=== PATIENT | female | born 1975 | race Caucasian/White ===

== ENCOUNTER → 2017-12-07 | Outpatient (CLI) | payer OTHER, MEDICAID | LOC: BMCIMAGING 13:39 | PROVIDERS: ATTEND Physician Assistant | DX: K59.00 Constipation, unspecified (principal); R19.00 Intra-abdominal and pelvic swelling, mass and lump, unspecified site ==

== ENCOUNTER → 2017-12-16 | Outpatient (CLI) | payer OTHER, MEDICAID ==
[~2017-12-16] MED LIST: IOPAMIDOL (ISOVUE-300) 100 ML BTL ONE
== END ==
LOC: FIMAGING 09:49
PROVIDERS: ATTEND Physician Assistant
DX: K82.9 Disease of gallbladder, unspecified (principal); J98.09 Other diseases of bronchus, not elsewhere classified
CPT/HCPCS: 74160; Q9967

== ENCOUNTER 2018-03-18 09:54 | Emergency (ER) | payer OTHER, MEDICAID ==
[2018-03-18 10:01] VITALS: BP 91/65
[2018-03-18] MEDS ORDERED: diphenhydrAMINE 25 MG CAP PO ONE (10:44)
[2018-03-18] MEDS ORDERED: diphenhydrAMINE 50 MG CAP PO ONE (10:44)
--- NOTE | 2018-03-18 10:46 | EDPHY ---
H & P Stated Complaint: generalized rash starting yesterday, abi one week ago Time Seen by Provider: 03/18/18 10:14 HPI/ROS: CHIEF COMPLAINT: Itchy rash on abdomen HISTORY OF PRESENT ILLNESS: 43-year-old female one-week status post cholecystectomy presents with an itchy rash on the abdomen. Onset of pruritis a few days ago in the incisional areas. No generalized rash. No shortness of breath, dizziness or prior allergic reaction. REVIEW OF SYSTEMS: complete 10 point ROS negative except at noted in the HPI - Personal History LMP (Females 10-55): Over 28 Days Ago - Medical/Surgical History Hx Asthma: No Hx Chronic Respiratory Disease: No Hx Diabetes: Yes Hx Cardiac Disease: No Hx Renal Disease: No Hx Cirrhosis: No Hx Alcoholism: No Hx HIV/AIDS: No Hx Splenectomy or Spleen Trauma: No Other PMH: NICM, DM,ASTHMA,GERD,IBS, abi - Social History Smoking Status: Never smoked - Physical Exam Exam: General Appearance: Alert, no distress Eyes: Pupils equal and round, no periorbital swelling ENT, Mouth: Mucous membranes moist, no oral swelling Neck: Normal inspection, no stridor Respiratory: Lungs are clear to auscultation, no wheezing Cardiovascular: Regular rate and rhythm Neurological: A&O, nonfocal, normal gait Skin: Erythema underlying the Steri-Strips on the anterior abdominal wall, there is also an area of erythema with an outline like a Band-Aid on the left anterior abdominal wall Extremities: No swelling Psychiatric: Mood and affect normal Constitutional: Initial Vital Signs Temperature (C) 36.6 C 03/18/18 09:59 Heart Rate 80 03/18/18 09:59 Respiratory Rate 18 03/18/18 09:59 Blood Pressure 91/65 L 03/18/18 09:59 O2 Sat (%) 95 03/18/18 09:59 O2 Delivery Mode Room Air Allergies/Adverse Reactions: fructose Allergy (Verified 03/18/18 09:57) INTOLERANCE Home Medications: Medication Instructions Recorded Aspirin 03/18/18 Coreg 03/18/18 Glimepiride 03/18/18 Jardiance 03/18/18 Levocetirizine Dihydrochloride 03/18/18 Nexium 03/18/18 ONGLYZA 03/18/18 Ramipril 03/18/18 Spironolactone 03/18/18 Medical Decision Making ED Course/Re-evaluation: This patient presents with an allergic reaction to the adhesive on Steri-Strips and Band-Aids. The Steri-Strips were removed. Benadryl 25 mg orally given. Differential Diagnosis: Differential diagnosis includes though it is not limited to laryngeal edema, bronchospasm, hypotension, angioedema. Departure - Departure Disposition: Home, Routine, Self-Care Clinical Impression: Allergic reaction Qualifiers: Encounter type: initial encounter Qualified Code(s): T78.40XA - Allergy, unspecified, initial encounter Condition: Good Instructions: General Allergic Reaction (ED) Additional Instructions: You are allergic to the adhesive on the Steri-Strips and bandages. I have removed the Steri-Strips today. Take Benadryl 1 tablet 3 times daily as needed for itching. Referrals: Aida Morris MD [Primary Care Provider] - As per Instructions
== END 2018-03-18 10:55 | disposition home or self-care (01) ==
DX: T78.49XA Other allergy, initial encounter (principal); E11.9 Type 2 diabetes mellitus without complications; J45.909 Unspecified asthma, uncomplicated; Z79.82 Long term (current) use of aspirin